=== PATIENT | male | born 1955 | race Caucasian/White ===

== ENCOUNTER 2019-12-10 07:52 | Emergency (ER) | payer BC ==
[~2019-12-10] VITALS: Ht 175.3 cm; Wt 115.2 kg
[2019-12-10 07:52] VITALS: BP_SYST 132
[2019-12-10 08:53] LABS: BASOPHILS # (AUTO) 0.1 K/uL (0.0-0.2); BASOPHILS % (AUTO) 1.3 % (0.0-2.0); EOSINOPHILS # (AUTO) 0.1 K/uL (0.0-0.4); HEMATOCRIT 45.9 % (36-54); HEMOGLOBIN 15.6 g/dL (14.0-18.0); LYMPHOCYTES # (AUTO) 1.7 K/uL (1.0-5.5); LYMPHOCYTES % (AUTO) 26.7 % (20.5-51.5); MEAN CORPUSCULAR HEMOGLOBIN 37 pg (27-31); MEAN CORPUSCULAR HGB CONC 34 % (32-36); MEAN CORPUSCULAR VOLUME 109 fL (79.0-98.0); MONOCYTES # (AUTO) 0.9 K/uL (0.0-1.0); MONOCYTES % (AUTO) 13.7 % (1.7-9.3); NEUTROPHILS # (AUTO) 3.6 K/uL (1.8-7.7); NEUTROPHILS % (AUTO) 57.3 % (40.0-70.0); PLATELET COUNT (AUTO) 173 K/uL (130-430); RED BLOOD CELL COUNT(AUTO) 4.22 MIL/uL (4.2-6.2); RED CELL DISTRIBUTION WIDTH 13.6 % (9.0-15.0); WHITE BLOOD COUNT (AUTO) 6.2 K/uL (4.8-10.8)
[2019-12-10 09:04] LABS: CALCIUM 8.7 mg/dL (8.4-11.0); CREATININE 0.88 mg/dL (0.55-1.30)
[2019-12-10 09:08] LABS: INR 1.9 (0.80-1.20); PROTHROMBIN TIME 18.9 SECS (9.5-12.5)
[2019-12-10 09:09] LABS: ALBUMIN 2.7 g/dL (3.4-4.8); TOTAL BILIRUBIN 2.7 mg/dL (0.0-1.0)
[2019-12-10 09:11] LABS: POTASSIUM 4.9 mmol/L (3.5-5.1)
[2019-12-10] MEDS ORDERED: NACL 0.9% 1,000 ML IV ONE ×2 (09:30→10:00)
[2019-12-10] MEDS ORDERED: INSULIN REGULAR, HUMAN 10 UNITS/0.1 ML INJ IVP ONE (09:30)
[2019-12-10 09:40] LABS: CKMB RELATIVE INDEX 1.3 (0.0-2.9); CREATINE KINASE MB 12.2 ng/mL (0-3.6)
[2019-12-10 09:51] LABS: PHOSPHORUS 3.2 mg/dL (2.7-4.5)
[2019-12-10] MEDS ORDERED: FOLIC ACID 5 MG/ML VIAL IV ONE (10:45)
[2019-12-10] MEDS ORDERED: THIAMINE HCL 100 MG/ML VIAL IM ONE (10:45)
[2019-12-10 11:28] VITALS: BP_SYST 132
== END 2019-12-10 11:29 | disposition home or self-care (01) ==
LOC: SED 07:52
DX: F10.10 Alcohol abuse, uncomplicated (principal); R74.0 Nonspecific elevation of levels of transaminase and lactic acid dehydrogenase [LDH]; R53.1 Weakness; R26.0 Ataxic gait; E11.9 Type 2 diabetes mellitus without complications; I10 Essential (primary) hypertension; Z86.73 Personal history of transient ischemic attack (TIA), and cerebral infarction without residual deficits; Z86.79 Personal history of other diseases of the circulatory system; Y90.8 Blood alcohol level of 240 mg/100 ml or more
CPT/HCPCS: 36415; 70450; 71045; 72128; 72131; 73502; 80053; 82550; 82553; 83605; 83735; 84100; 84484; 85025; 85610; 85730; 87040; 93005; 96365; 96372; 99285; G0482; J1815; J3411; J3490; J7030; 87086